=== PATIENT | female | born 1940 | race Caucasian/White ===

== ENCOUNTER 2021-03-23 20:51 | Emergency (ER) | payer MEDICARE, OTHER ==
[2021-03-23 21:57] LABS: HEMOGLOBIN 14.2 gm/dl (12.3-15.3); RED BLOOD COUNT 4.45 M/UL (4.00-5.10); WHITE BLOOD COUNT 12.2 K/UL (4.5-11.0)
[2021-03-23 22:39] LABS: BUN/CREATININE RATIO 29 (0-10)
== END 2021-03-24 01:45 | disposition left against medical advice (07) ==
LOC: ER1 20:51
PROVIDERS: Physician Assistant
DX: I10 Essential (primary) hypertension (principal)
CPT/HCPCS: 71045; 80053; 82550; 82553; 83690; 83874; 84484; 85025; 93005; 99283